=== PATIENT | female | born 1955 | race American Indian/Alaskan Native ===

== ENCOUNTER 2017-05-17 09:35 | Emergency (ER) | payer OTHER ==
[2017-05-17 09:56] VITALS: BP 165/85
--- NOTE | 2017-05-17 13:40 | Emergency Department Report ---
HPI - General Chief Complaint: Back Pain/Injury Time Seen by Provider: 05/17/17 13:10 - HPI HPI: This is a 61-year-old female with a history of left hip and sciatica who presents to ED complaining of worsening pain and needing pain medicine until she is able to see her doctor next week. She denies any recent injuries trauma to the hip. Patient states that she normally gets steroid injections in her left hip and is almost timeframeinjection per her doctor is out of town at the moment. ED Past Medical Hx - Past Medical History Hx Arthritis: Yes Additional medical history: Hx of sciatica - Social History Smoking Status: Current Every Day Smoker - Medications Home Medications: Home Medications Medication Instructions Recorded Confirmed Last Taken Type Diclofenac Dr [Voltaren Dr] 75 mg PO BID #30 tablet 05/17/17 Unknown Rx HYDROcodone/APAP 5-325 [[place] 1 each PO Q6HR PRN #12 tablet 05/17/17 Unknown Rx 5/325] Naproxen [Naprosyn] 500 mg PO BID #30 tablet 05/17/17 Unknown Rx ED Review of Systems ROS: Stated complaint: BACK PAIN Other details as noted in HPI Constitutional: denies: chills, fever Eyes: denies: eye pain, eye discharge, vision change ENT: denies: ear pain, throat pain Respiratory: denies: cough, shortness of breath, wheezing Cardiovascular: denies: chest pain, palpitations Endocrine: no symptoms reported Gastrointestinal: denies: abdominal pain, nausea, diarrhea Genitourinary: denies: urgency, dysuria, discharge Musculoskeletal: denies: back pain, joint swelling, arthralgia Skin: denies: rash, lesions Neurological: denies: headache, weakness, paresthesias Psychiatric: denies: anxiety, depression Hematological/Lymphatic: denies: easy bleeding, easy bruising Physical Exam - Physical Exam Vital Signs: Vital Signs 05/17/17 09:54 Temperature 98.8 F Pulse Rate 88 Respiratory 16 Rate Blood Pressure 165/85 O2 Sat by Pulse 100 Oximetry Physical Exam: gENERAL: Alert and oriented x3, no apparent distress, Normal Gait, atraumatic. LUNGS: Symetrical with respiration, No wheezing, no rales or crackles, CTAB. HEART: S1, S2 present, regular rate and rhythm without murmur, no rubs, no gallops. Non tender to palpation EXTREMITIES/MUSCULOSKELETAL: No cyanosis, clubbing, rash, lesions or edema. Full ROM bilaterally. UE Pulses 2+ bilaterally. LE and 5+ strength bilaterally , straight leg raise negative bilaterally. NEUROLOGIC: The patient is cooperative with no focal neurologic deficits. Normal speech. Normal sensation in bilateral upper and lower extremities, No loss of sensation, SKIN: Warm and dry, No lesions, No ulceration or induration present. ED Course Vital Signs 05/17/17 09:54 Temperature 98.8 F Pulse Rate 88 Respiratory 16 Rate Blood Pressure 165/85 O2 Sat by Pulse 100 Oximetry ED Medical Decision Making - Medical Decision Making 61-year-old who presents with osteoarthritis of the hip Discussed the patient as well as give her some pain medication and said she follows up with her primary care Vital signs are normal and she is in no acute distress. Critical care attestation.: If time is entered above; I have spent that time in minutes in the direct care of this critically ill patient, excluding procedure time. ED Disposition Clinical Impression: Lumbar radiculopathy Osteoarthritis Qualifiers: Osteoarthritis location: hand Osteoarthritis type: unspecified Laterality: left Qualified Code(s): M19.042 - Primary osteoarthritis, left hand Disposition: - TO HOME OR SELFCARE Is pt being admited?: No Does the pt Need Aspirin: No Condition: Stable Instructions: Lumbar Radiculopathy (ED), Sciatica (ED) Additional Instructions: Make sure to follow up with the primary care physician as discussed. Take all your medications as you've been prescribed. If you have any worsening symptoms or develop new symptoms please return to ED immediately. Prescriptions: Diclofenac Dr [Voltaren Dr] 75 mg PO BID #30 tablet HYDROcodone/APAP 5-325 [[place] 5/325] 1 each PO Q6HR PRN #12 tablet PRN Reason: Pain Naproxen [Naprosyn] 500 mg PO BID #30 tablet Referrals: VEENA ZAMORANO MD [Primary Care Provider] - 3-5 Days DANIELA LOPEZ MD [Staff Physician] - 3-5 Days Forms: Work/School Release Form(ED) Time of Disposition: 13:44
== END 2017-05-17 14:01 | disposition home or self-care (01) ==
LOC: ED 09:35
DX: M54.16 Radiculopathy, lumbar region (principal); M19.042 Primary osteoarthritis, left hand; M54.30 Sciatica, unspecified side; F17.200 Nicotine dependence, unspecified, uncomplicated
CPT/HCPCS: 99282